=== PATIENT | female | born 1950 | race Asian ===

== ENCOUNTER 2019-02-06 05:40 | Inpatient (IN) | payer MEDICARE, OTHER ==
[~2019-02-06] VITALS: Ht 162.6 cm; Wt 81.6 kg
[2019-02-06] VITALS (9 sets, daily range): BP systolic 87–111; BP diastolic 43–84
--- NOTE | 2019-02-06 05:56 | Emergency Room Report ---
History of Present Illness General Chief Complaint: General Complaint Source: Medical Record, EMS Present Illness HPI She presents with alleged hypoxia at [facility]. She is a history of metastatic colon cancer to her liver. Her oxygen saturations were apparently 88 %. Paramedics found her with saturations of 90 to 92% and started on oxygen. They found that hypotensive. They were unable to start an IV. They transported the patient here. There is no report of fever. The patient is complaining about chest pain. She cannot describe this nor rate it. Apparently she was recently discharged from [facility] for hypotension. She was found to be hyponatremic at that time. She was hospitalized and discharged 3 days ago. During the hospitalization it was documented she was on "supportive care". History of metastatic colon cancer to the liver. Paramedics did not notice that she has evidence of trauma by the right eye. Patient is unable to state how this occurred. Apparently patient is DNR. However, paramedics told me (asked twice) full code. They reported that at the SNF, the patient had a bracelet which denoted "DNR" which the staff insisted was torn off prior to transport. H/O diabetes. Allergies: Coded Allergies: No Known Allergies (Unverified , 02/06/19) Patient History Limited by: medical condition Past Medical History: see triage record Past Surgical History: other - Port-A-Cath Social History Narrative [facility] Now: No Reviewed Nursing Documentation: PMH: Agreed; PSxH: Agreed Nursing Documentation-PMH Hx Cardiac Problems: Yes - DVT, CAD, ANEMIA, Hx Hypertension: Yes - HTN Hx Diabetes: Yes - DM Hx Gastrointestinal Problems: Yes - COLON CA Review of Systems All Other Systems: limited Physical Exam Vital Signs Date Time Temp Pulse Resp B/P (MAP) Pulse Ox O2 Delivery O2 Flow Rate FiO2 02/06/19 05:37 100 16 75/42 (53) 96 Room Air Sp02 EP Interpretation: abnormal - Interpreted as low by me General Appearance: no apparent distress, alert, Chronically Ill Head: normocephalic, atraumatic Eyes: bilateral eye PERRL, bilateral eye scleral icterus ENT: moist mucus membranes Neck: supple Respiratory: lungs clear, no respiratory distress, decreased breath sounds Cardiovascular #1: regular rate, rhythm, edema - Anasarca Cardiovascular #2: 2+ radial (R) Gastrointestinal: non tender, soft - slightly distended, other - Possible fluid wave Genitourinary: no CVA tenderness Musculoskeletal: no calf tenderness Neurologic: responsive, sensory intact, motor weakness - diffuse, oriented - X2 Psychiatric: depressed affect Skin: other - Jaundice, hematoma - Right eye Procedures Critical Care Time Critical Care Time Total Critical Care Time: 30 min bedside evaluation and treatment excludes procedures (EKG). Reason for critical care: Hypotension, sepsis, metastatic colon cancer, determination level of care Possible complications: hypotension, hypertension, AK, shock, arrhythmias, metabolic acidosis, end organ damage, respiratory failure. Interventions: Treatment of sepsis, treatment of hyperkalemia, determination of level of care. Course: Patient presents with hypotension, hypoxia. Evaluation with bilateral pulmonary infiltrates versus congestive failure. Leukocytosis is present. Initial fluid resuscitation stopped when x-ray and BNP is elevated. Due to elevated lactate antibiotics begun. Rigorous determination of CODE STATUS which is DNR/DNI. Hyperkalemia treated. Blood pressure improved. Discussed with admitting physician. Consultations: nursing staff, correction facility, admitting physician Performed by: Dr. Ramirez Tolerated well condition = critical Medical Decision Making Diagnostic Impression: Primary Impression: Transient hypotension Additional Impressions: Sepsis Qualified Codes: A41.9 - Sepsis, unspecified organism Hyperkalemia Hyponatremia Liver metastases Colon cancer Qualified Codes: C18.9 - Malignant neoplasm of colon, unspecified Facial trauma Qualified Codes: S09.93XA - Unspecified injury of face, initial encounter ER Course Patient presents with hypotension and hypoxia with history of metastatic cancer to liver. Differential includes sepsis, GI bleed, hepatic encephalopathy, electrolyte abnormalities amongst others. Patient will be with EKG, chest x- ray abdominal films. Patient will receive IV hydration as her blood pressure is better here. Depending what is uncovered antibiotics may need to be started or started. EKG with sinus rhythm low voltage QRS no injury. Chest x-ray bilateral infiltrates suggesting congestive heart failure. Portacath is present. Leukocytosis. Hyperkalemia without renal failure. Elevated lactate. Mildly elevated BNP. CT of head without cranial pathology. Hyperkalemia treated with calcium, Kayexelate, bicarb. Fluids stopped. Elevated lactate. Antibiotics begun. actuarial director confirms patient DNR with [facility]. Sepsis re-evaluation: 7:40, BP better, antibiotics ordered, improved mentation. Hydrocortisone ordered. Admit telemetry Dr. Sanford. Laboratory Tests Test 02/06/19 05:55 02/06/19 06:30 02/06/19 09:40 White Blood Count 21.5 K/UL (4.8-10.8) H Red Blood Count 3.45 M/UL (4.20-5.40) L Hemoglobin 10.3 G/DL (12.0-16.0) L Hematocrit 31.1 % (37.0-47.0) L Mean Corpuscular Volume 90 FL (80-99) Mean Corpuscular Hemoglobin 29.8 PG (27.0-31.0) Mean Corpuscular Hemoglobin Concent 33.1 G/DL (32.0-36.0) Red Cell Distribution Width 18.4 % (11.6-14.8) H Platelet Count 350 K/UL (150-450) Mean Platelet Volume 5.5 FL (6.5-10.1) L Neutrophils (%) (Auto) % (45.0-75.0) Lymphocytes (%) (Auto) % (20.0-45.0) Monocytes (%) (Auto) % (1.0-10.0) Eosinophils (%) (Auto) % (0.0-3.0) Basophils (%) (Auto) % (0.0-2.0) Differential Total Cells Counted 100 Neutrophils % (Manual) 89 % (45-75) H Lymphocytes % (Manual) 3 % (20-45) L Monocytes % (Manual) 8 % (1-10) Eosinophils % (Manual) 0 % (0-3) Basophils % (Manual) 0 % (0-2) Band Neutrophils 0 % (0-8) Platelet Estimate Adequate Platelet Morphology Normal Anisocytosis 1+ Prothrombin Time 11.0 SEC (9.30-11.50) Prothrombin Time INR 1.0 (0.9-1.1) PTT 29 SEC (23-33) Sodium Level 125 MMOL/L (136-145) L Potassium Level 6.0 MMOL/L (3.5-5.1) *H 6.0 MMOL/L (3.5-5.1) *H Chloride Level 92 MMOL/L (98-107) L Carbon Dioxide Level 20 MMOL/L (21-32) L Anion Gap 13 mmol/L (5-15) Blood Urea Nitrogen 51 mg/dL (7-18) H Creatinine 1.2 MG/DL (0.55-1.30) Estimate Glomerular Filtration Rate 45.0 mL/min (>60) Glucose Level 99 MG/DL (74-106) Lactic Acid Level 2.30 mmol/L (0.4-2.0) H Calcium Level 8.7 MG/DL (8.5-10.1) Magnesium Level 2.8 MG/DL (1.8-2.4) H Total Bilirubin 4.0 MG/DL (0.2-1.0) H Direct Bilirubin 2.9 MG/DL (0.0-0.3) H Aspartate Amino Transferase (AST) 322 U/L (15-37) H Alanine Aminotransferase (ALT) 51 U/L (12-78) Alkaline Phosphatase 684 U/L (46-116) H Ammonia 18 umol/L (11-32) Total Creatine Kinase 289 U/L (26-308) Troponin I 0.000 ng/mL (0.000-0.056) Pro-B-Type Natriuretic Peptide 1402 pg/mL (0-125) H Total Protein 5.9 G/DL (6.4-8.2) L Albumin 1.4 G/DL (3.4-5.0) L Globulin 4.5 g/dL Albumin/Globulin Ratio 0.3 (1.0-2.7) L Lipase 99 U/L (73-393) Urine Color Brown Urine Appearance Clear Urine pH 5 (4.5-8.0) Urine Specific [place] 1.025 (1.005-1.035) Urine Protein 2+ (NEGATIVE) H Urine Glucose (UA) Negative (NEGATIVE) Urine Ketones 1+ (NEGATIVE) H Urine Blood 1+ (NEGATIVE) H Urine Nitrite Positive (NEGATIVE) H Urine Bilirubin 2+ (NEGATIVE) H Urine Ictotest Positive (NEGATIVE) Urine Urobilinogen 1 MG/DL (0.0-1.0) H Urine Leukocyte Esterase 1+ (NEGATIVE) H Urine RBC 0-2 /HPF (0 - 2) Urine WBC 2-4 /HPF (0 - 2) Urine Squamous Epithelial Cells Few /LPF (NONE/OCC) Urine Bacteria Moderate /HPF (NONE) H EKG Diagnostic Results Rate: normal Rhythm: NSR ST Segments: no acute changes - low voltage Rhythm Strip Diag. Results EP Interpretation: yes Rhythm: NSR, no PVC's, no ectopy Chest X-Ray Diagnostic Results Chest X-Ray Diagnostic Results : Chest X-Ray Ordered: Yes # of Views/Limited/Complete: 1 View Indication: Other EP Interpretation: Yes Interpretation: no pneumothorax, other - CHF and inc cor, portacath Impression: Other Electronically Signed by: Electronically signed by Marciano Ramirez MD CT/MRI/US Diagnostic Results CT/MRI/US Diagnostic Results : Imaging Test Ordered: head Impression no bleed Last Vital Signs Date Time Temp Pulse Resp B/P (MAP) Pulse Ox O2 Delivery O2 Flow Rate FiO2 02/06/19 11:04 102 16 90/43 97 Nasal Cannula 2.0 Status: improved Disposition: ADMITTED INPATIENT Condition: Serious Marciano Ramirez MD Feb 06, 2019 05:56
[2019-02-06] MEDS ORDERED: Sodium Chloride 550 ML IV SCH (06:00)
[2019-02-06 06:18] LABS: HEMATOCRIT 31.1 % (37.0-47.0); HEMOGLOBIN 10.3 G/DL (12.0-16.0); MEAN CORPUSCULAR VOLUME 90 FL (80-99); PLATELET COUNT 350 K/UL (150-450); RED BLOOD COUNT 3.45 M/UL (4.20-5.40); RED CELL DISTRIBUTION WIDTH 18.4 % (11.6-14.8); WHITE BLOOD COUNT 21.5 K/UL (4.8-10.8)
[2019-02-06] MEDS ORDERED: LOSARTAN-HCTZ1 EAC2 ORAL (06:23)
[2019-02-06] MEDS ORDERED: LINZESS145 MCG PO (06:23)
[2019-02-06] MEDS ORDERED: RANEXA1000 MG ORAL (06:23)
[2019-02-06] MEDS ORDERED: LIPITOR80 MG ORAL (06:23)
[2019-02-06] MEDS ORDERED: TRADJENTA5 MG PO (06:23)
[2019-02-06] MEDS ORDERED: FERROUS SULFAT325 M2 ORAL (06:23)
[2019-02-06] MEDS ORDERED: VITAMIN D-40400 UNIT ORAL (06:23)
[2019-02-06] MEDS ORDERED: ELIQUIS5 MG PO (06:23)
[2019-02-06] MEDS ORDERED: METFORMIN HCL850 M1 ORAL (06:23)
[2019-02-06 06:38] LABS: AMMONIA 18 umol/L (11-32)
[2019-02-06] MEDS ORDERED: Piperacillin/Tazobactam 3.375 GM in NS 110 ML IVPB ONE (07:00)
[2019-02-06] MEDS ORDERED: Vancomycin 1 GM in NS 275 ML IVPB ONE (07:00)
[2019-02-06 07:02] LABS: APPEARANCE,URINE CLEAR; BILIRUBIN, URINE 2+ (NEGATIVE); COLOR,URINE BROWN; GLUCOSE, URINE (UA) NEGATIVE (NEGATIVE); KETONES,URINE 1+ (NEGATIVE); LEUKOCYTE ESTERASE ,URINE 1+ (NEGATIVE); NITRITE,URINE POSITIVE (NEGATIVE); PH,URINE 5 (4.5-8.0); PROTEIN,URINE 2+ (NEGATIVE); UROBILINOGEN,URINE 1 MG/DL (0.0-1.0)
[2019-02-06 07:33] LABS: ALANINE AMINOTRANSFERASE 51 U/L (12-78); ALBUMIN 1.4 G/DL (3.4-5.0); ALBUMIN/GLOBULIN RATIO 0.3 (1.0-2.7); ALKALINE PHOSPHATASE 684 U/L (46-116); ANION GAP 13 mmol/L (5-15); ASPARTATE AMINO TRANSFERASE 322 U/L (15-37); BLOOD UREA NITROGEN 51 mg/dL (7-18); CALCIUM 8.7 MG/DL (8.5-10.1); CARBON DIOXIDE 20 MMOL/L (21-32); CHLORIDE 92 MMOL/L (98-107); CREATINE KINASE 289 U/L (26-308); CREATININE 1.2 MG/DL (0.55-1.30); SODIUM 125 MMOL/L (136-145)
[2019-02-06 07:35] LABS: BILIRUBIN,DIRECT 2.9 MG/DL (0.0-0.3)
[2019-02-06] MEDS ORDERED: Sodium Polystyrene Sulfonate Enema RECTAL ONE (07:45)
[2019-02-06] MEDS ORDERED: Sodium Bicarbonate 50ml Carp IV ONE (07:45)
[2019-02-06] MEDS ORDERED: Calcium Gluconate 1gm/10ml vial IVP ONE (08:00)
--- NOTE | 2019-02-06 08:26 | Diagnostic Imaging Report ---
Indications: Altered level of consciousness Technique: Spiral acquisitions obtained through the brain. Angled axial and coronal 5 x 5 mm slices were reconstructed. Total dose length product 1376.09 mGycm. CTDI vol(s) 70.38 mGy. Dose reduction achieved using automated exposure control Comparison: None. Findings: No acute intracranial hemorrhage or edema, mass effect, or midline shift. There is minimal age-related prominence of the ventricles and extra-axial CSF spaces and minimal periventricular deep white matter low-attenuation, likely chronic microvascular ischemic change. Visualized orbits and sinuses are unremarkable. The mastoids are clear. Impression: Minimal chronic and age-related changes. Negative for acute intracranial bleed or mass effect This agrees with the preliminary interpretation provided overnight by [facility] teleradiology service. The CT scanner at [facility] is accredited by the [employer] and the scans are performed using protocols designed to limit radiation exposure to as low as reasonably achievable to attain images of sufficient resolution adequate for diagnostic evaluation.
--- NOTE | 2019-02-06 10:51 | Diagnostic Imaging Report ---
Indication: Shortness of breath Technique: One view of the chest Comparison: none Findings: There is a right chest port catheter in place. There is bilateral interstitial and airspace edema, worse on the right than on the left. The right hemidiaphragm is obscured, pleural effusion likely. There is slight blunting of left costophrenic sulcus which could indicate a small left pleural effusion as well. The heart size is borderline enlarged. Impression: Bilateral interstitial and airspace disease, right greater than left, may reflect edema versus infiltrates Suspect bilateral right greater than left pleural effusions Borderline cardiomegaly Right chest port catheter in place
[2019-02-06] MEDS: Piperacillin/Tazobactam 3.375 GM in NS 110 ML IVPB SCH ×2 (15:16→21:58)
[2019-02-06] MEDS: NovoLOG Insulin Flexpen SUBQ SCH ×2 (16:30→21:00)
[2019-02-06] MEDS ORDERED: NovoLOG Insulin Flexpen SUBQ SCH (16:50)
[2019-02-06] MEDS: Eliquis 5mg tablet ORAL SCH (17:29)
[2019-02-06] MEDS: Morphine Sulfate 2mg/ml Inj(IV/IM USE ONLY) IVP PRN ×2 (19:02→23:53)
[2019-02-06] MEDS: Albuterol/Ipratropium 3ml neb HHN SCH (20:08)
[2019-02-06] MEDS: Vancomycin 500mg/D5W 110ml IVPB SCH ×2 (20:26)
--- NOTE | 2019-02-06 21:30 | Consultation ---
DATE OF CONSULTATION: 02/06/2019 CARDIOLOGY CONSULTATION CONSULTING PHYSICIAN: Marciano Sanford M.D. REQUESTING PHYSICIAN: Sylvain Bermudez M.D. REASON FOR CONSULTATION: Shock. HISTORY OF PRESENT ILLNESS: This is a 68-year-old Pashto female with a history of metastatic colon cancer, who was notably hypoxic and transferred to the emergency room by paramedics. She was hypotensive when paramedics arrived and an IV access could not be obtained. The patient does have a Port-A-Cath in her right chest. The patient apparently also had some chest pain, palpitations, but no shortness of breath, fevers, or chills. The patient was recently hospitalized at [facility] for hypotension and hyponatremia. She apparently is not on any active treatment of her cancer at this time. PAST MEDICAL HISTORY: 1. Colon cancer. 2. History of DVT. 3. Anemia. 4. Hypertension. 5. Type 2 diabetes mellitus. 6. Coronary artery disease. 7. Osteoarthritis. 8. Degenerative disk disease. 9. Osteoporosis. MEDICATIONS: Reviewed and reconciled. ALLERGIES: None known. FAMILY HISTORY: Noncontributory. SOCIAL HISTORY: Negative for smoking, alcohol, or substance abuse. REVIEW OF SYSTEMS: A 10-point review of systems performed from review of correction chart. All systems negative other than noted above. The patient is unable to give any additional data due to language barrier and severity of condition. PHYSICAL EXAMINATION: VITAL SIGNS: Blood pressure 75/42, heart rate 100, and respiratory rate 16 on arrival to the emergency room. Now, blood pressure is 90/43, heart rate is 102, and respiratory rate is 16. Oxygen saturation 97% on 2 liters. Temperature 98.2. HEENT: Temporal wasting. Pale conjunctivae. Withdrawn. Lethargic. Dry mucous membranes. There is scleral icterus. There is a hematoma over the right eye. LUNGS: Diminished breath sounds. Chest wall with right Port-A-Cath. No breast masses. CARDIAC: Regular rhythm. Rapid rate. Normal S1, S2 with a fourth heart sound. No murmur. ABDOMEN: Soft. No focal tenderness, guarding, or rebound. EXTREMITIES: Reveal no clubbing, cyanosis, or edema. LABORATORY DATA: White count 21.5 and hemoglobin 10. INR 1. Lactic acid 2.3. Potassium 6, sodium 125, chloride 92, bicarb 20, BUN 51, and creatinine 1.2. Troponin negative. Ammonia 18. Albumin is 1.4. Pro-natriuretic peptide is 1402. IMPRESSION: 1. Shock. 2. Sepsis. 3. Hypovolemia. 4. Hyperkalemia. 5. Severe protein-calorie malnutrition. 6. Lactic acidosis. 7. Metastatic colon cancer with liver mets and clinical signs of jaundice suggesting an obstructive component in the hepatobiliary tree. 8. Type 2 diabetes mellitus. 9. Prerenal azotemia. 10. Acute renal failure. 11. Bilateral pneumonia with pleural effusions. 12. Hyponatremia. 13. History of DVT. On anticoagulation. PLAN: 1. Based on advanced directives, DNR. 2. Saline hydration. 3. Kayexalate given. 4. Phillips culture. 5. Broad-spectrum antibiotics. 6. Respiratory hygiene. 7. Consideration for thoracentesis. 8. Continue apixaban for management of DVT. 9. Follow up chemistry panel. 10. Review prior workup prior to considering further diagnostic imaging of the abdomen. 11. Serial lactic acid levels with continued intravenous fluid hydration. Marciano Sanford M.D. DR: NICHOLAS JOB#: [id number] CC:
[2019-02-07] VITALS: BP_SYST 191; BP_SYST 91; BP_DIAS 61
[2019-02-07] MEDS: Albuterol/Ipratropium 3ml neb HHN SCH ×4 (02:05→20:56)
[2019-02-07 04:00] VITALS: BP 86/57
[2019-02-07] MEDS: Morphine Sulfate 2mg/ml Inj(IV/IM USE ONLY) IVP PRN ×3 (04:35→16:19)
[2019-02-07] MEDS: Piperacillin/Tazobactam 3.375 GM in NS 110 ML IVPB SCH ×3 (06:03→22:00)
[2019-02-07] MEDS: NovoLOG Insulin Flexpen SUBQ SCH ×2 (06:06→11:30)
[2019-02-07 08:00] VITALS: BP_SYST 91; BP_SYST 92; BP_DIAS 58; BP_DIAS 68
[2019-02-07] MEDS: Eliquis 5mg tablet ORAL SCH ×2 (09:00→17:30)
[2019-02-07] MEDS ORDERED: Heparin 5000 units/ml inj SUBQ SCH (09:00)
[2019-02-07] MEDS: Vancomycin 500mg/D5W 110ml IVPB SCH ×2 (09:06)
[2019-02-07 11:38] LABS: HEMATOCRIT 31.2 % (37.0-47.0); HEMOGLOBIN 10.1 G/DL (12.0-16.0); MEAN CORPUSCULAR VOLUME 90 FL (80-99); PLATELET COUNT 329 K/UL (150-450); RED BLOOD COUNT 3.47 M/UL (4.20-5.40); RED CELL DISTRIBUTION WIDTH 17.5 % (11.6-14.8); WHITE BLOOD COUNT 19.8 K/UL (4.8-10.8)
[2019-02-07 12:00] VITALS: BP 92/68
[2019-02-07 12:20] LABS: ALANINE AMINOTRANSFERASE 44 U/L (12-78); ALBUMIN 1.2 G/DL (3.4-5.0); ALBUMIN/GLOBULIN RATIO 0.3 (1.0-2.7); ALKALINE PHOSPHATASE 623 U/L (46-116); ANION GAP 14 mmol/L (5-15); ASPARTATE AMINO TRANSFERASE 290 U/L (15-37); BILIRUBIN,TOTAL 3.4 MG/DL (0.2-1.0); BLOOD UREA NITROGEN 59 mg/dL (7-18); CALCIUM 8.3 MG/DL (8.5-10.1); CARBON DIOXIDE 20 MMOL/L (21-32); CHLORIDE 97 MMOL/L (98-107); CREATININE 1.3 MG/DL (0.55-1.30); POTASSIUM 5.4 MMOL/L (3.5-5.1); SODIUM 131 MMOL/L (136-145)
[2019-02-07] MEDS ORDERED: Solu-MEDROL 40mg Inj IVP SCH (13:00)
[2019-02-07 16:00] VITALS: BP 100/63
[2019-02-07] MEDS ORDERED: LORazepam Inj 2mg/ml 1ml IV PRN (17:15)
--- NOTE | 2019-02-07 17:15 | History and Physical Report ---
DATE OF ADMISSION: 02/06/2019 CHIEF COMPLAINT: Shock. HISTORY OF PRESENT ILLNESS: This is an unfortunate 68-year-old Lao female. She has a history of metastatic colon cancer with mets to the liver, history of DVT, anemia, hypertension, diabetes, and ischemic cardiomyopathy. She [facility] after she was noted to be short of breath and hypoxic. On evaluation in the emergency room, the patient was noted to be hypotensive. Her laboratory tests were significant for a sodium of 125 and a potassium was 6. Her bilirubin was 4. She had an albumin of only 1.4. Her urinalysis was clear. Chest x-ray showed bilateral infiltrates and pleural effusions. CT scan of the head was negative. The patient was cultured and has been started on broad-spectrum IV antibiotics and is now admitted for further evaluation and care. PAST MEDICAL HISTORY: As above. PAST SURGICAL HISTORY: None known. CURRENT MEDICATIONS: Reconciled and reviewed. ALLERGIES: None. FAMILY HISTORY: Unknown. SOCIAL HISTORY: There is no known history of tobacco, ethanol, or drugs. REVIEW OF SYSTEMS: From the patient is unobtainable as she is confused. PHYSICAL EXAMINATION: VITAL SIGNS: Temperature 97.6, pulse 98, respirations 20, and blood pressure 91/67. GENERAL: The patient is an elderly female, in no apparent distress. She is lethargic, but does open her eyes. NECK: Supple. HEART: Regular rate and rhythm. LUNGS: Clear anteriorly. ABDOMEN: Soft, nontender, and nondistended. EXTREMITIES: Without clubbing, cyanosis, or edema. LABORATORY DATA: UA was clear. White count 21,000, hemoglobin is 10, and platelets are 350,000. Sodium 125, potassium is 6, and BUN of 51 with creatinine of 1.2. Bilirubin of 4.0. ASSESSMENT: This is an unfortunate elderly female with history of metastatic colon cancer, diabetes, history of DVT, and hypertension admitted with sepsis secondary to pneumonia. 1. Sepsis. 2. Shock. 3. Pneumonia. 4. Metastatic colon cancer. 5. Diabetes. 6. History of ischemic cardiomyopathy. PLAN: 1. IV fluids. 2. Broad-spectrum IV antibiotics. 3. Monitor chest x-ray. 4. Follow up cultures. 5. Continue stress ulcer prophylaxis. Apixaban with caution. 6. The patient's prognosis is poor. Sylvain Bermudez M.D. DR: ESTEPHANIA JOB#: [id number] CC:
--- NOTE | 2019-02-07 17:53 | Pulmonology Progress Note ---
Subjective Allergies: Coded Allergies: No Known Allergies (Unverified , 02/06/19) Objective Last 24 Hour Vital Signs Date Time Temp Pulse Resp B/P (MAP) Pulse Ox O2 Delivery O2 Flow Rate FiO2 02/07/19 16:00 97.9 99 15 100/63 (75) 95 02/07/19 16:00 98 02/07/19 13:30 Nasal Cannula 02/07/19 13:30 Nasal Cannula 02/07/19 12:00 97.6 98 15 92/68 (76) 95 02/07/19 12:00 99 02/07/19 09:00 Nasal Cannula 3.0 02/07/19 08:00 98 02/07/19 08:00 98.0 98 18 91/58 (69) 95 02/07/19 07:30 89 18 97 Nasal Cannula 2.0 28 02/07/19 07:30 Nasal Cannula 02/07/19 04:00 101 02/07/19 04:00 97.7 101 18 86/57 (67) 94 02/07/19 02:16 87 16 96 Nasal Cannula 2.0 28 02/07/19 02:16 28 02/07/19 02:06 98 18 96 Nasal Cannula 2.0 28 02/07/19 00:00 98 02/07/19 00:00 97.6 101 20 91/61 (71) 94 02/06/19 21:00 Nasal Cannula 3.0 02/06/19 20:33 93 18 91 Nasal Cannula 3.0 32 02/06/19 20:20 89 16 93 Nasal Cannula 2.0 28 02/06/19 20:16 28 02/06/19 20:08 102 18 94 Nasal Cannula 2.0 28 02/06/19 20:00 97.5 99 18 91/55 (67) 94 02/06/19 20:00 98 Intake and Output 02/06/19 02/07/19 19:00 07:00 Intake Total 817.5 ml 1327.5 ml Output Total 440 ml 100 ml Balance 377.5 ml 1227.5 ml Intake Oral 0 ml IV Total 817.5 ml 1327.5 ml Output Urine Total 440 ml 100 ml # Bowel Movements 1 Microbiology Date/Time Source Procedure Growth Status 02/06/19 06:30 Urine,Clean Catch Urine Culture - Preliminary NO GROWTH AFTER 24 HOURS Resulted Laboratory Tests 02/07/19 11:05: White Blood Count 19.8H, Red Blood Count 3.47L, Hemoglobin 10.1L, Hematocrit 31.2L, Mean Corpuscular Volume 90, Mean Corpuscular Hemoglobin 29.1, Mean Corpuscular Hemoglobin Concent 32.4, Red Cell Distribution Width 17.5H, Platelet Count 329, Mean Platelet Volume 5.4L, Neutrophils (%) (Auto) , Lymphocytes (%) (Auto) , Monocytes (%) (Auto) , Eosinophils (%) (Auto) , Basophils (%) (Auto) , Differential Total Cells Counted 100, Neutrophils % ( Manual) 84H, Lymphocytes % (Manual) 6L, Monocytes % (Manual) 10, Eosinophils % ( Manual) 0, Basophils % (Manual) 0, Band Neutrophils 0, Platelet Estimate Adequate, Platelet Morphology Normal, Anisocytosis 1+, Sodium Level 131L, Potassium Level 5.4H, Chloride Level 97L, Carbon Dioxide Level 20L, Anion Gap 14 , Blood Urea Nitrogen 59H, Creatinine 1.3, Estimat Glomerular Filtration Rate 41.0, Glucose Level 94, Calcium Level 8.3L, Total Bilirubin 3.4H, Direct Bilirubin 3.0H, Aspartate Amino Transf (AST/SGOT) 290H, Alanine Aminotransferase (ALT/SGPT) 44, Alkaline Phosphatase 623H, Total Protein 5.2L, Albumin 1.2L, Globulin 4.0, Albumin/Globulin Ratio 0.3L Current Medications Medications (Trade) Dose Ordered Sig/Dao Route PRN Reason Start Time Stop Time Status Last Admin Dose Admin Albuterol/ Ipratropium (Albuterol/ Ipratropium) 3 ml Q6HRT HHN 02/06/19 19:00 02/11/19 18:59 02/07/19 02:05 Apixaban (Eliquis) 5 mg BID ORAL 02/06/19 18:00 03/08/19 17:59 Dextrose (Dextrose 50%) 25 ml Q30M PRN IV Hypoglycemia 02/06/19 14:00 03/08/19 13:59 Dextrose (Dextrose 50%) 50 ml Q30M PRN IV Hypoglycemia 02/06/19 14:00 03/08/19 13:59 Insulin Aspart (NovoLOG) Q6HR SUBQ 02/07/19 18:00 03/08/19 16:29 Lorazepam (Ativan 2mg/ml 1ml) 1 mg Q6H PRN IV For Anxiety 02/07/19 17:15 02/14/19 17:14 Methylprednisolone Sodium Succinate (Solu-MEDROL) 40 mg Q12H IVP 02/07/19 13:00 03/09/19 12:59 02/07/19 13:09 Morphine Sulfate (Morphine Sulfate) 4 mg Q3H PRN IVP For Pain 02/07/19 19:00 02/14/19 18:59 Piperacillin Sod/ Tazobactam Sod 3.375 gm/Sodium Chloride 110 ml @ 27.5 mls/hr EVERY 8 HOURS IVPB 02/06/19 15:00 02/11/19 14:59 02/07/19 13:09 Sodium Chloride 1,000 ml @ 100 mls/hr Q10H IV 02/06/19 13:45 03/08/19 13:44 02/07/19 09:45 Vancomycin HCl (Vanco rx to dose) 1 ea DAILY PRN MISC Per rx protocol 02/06/19 13:45 03/08/19 13:44 Vancomycin HCl 500 mg/Dextrose 110 ml @ 110 mls/hr Q12HR@0800,2000 IVPB 02/06/19 20:00 02/11/19 19:59 02/07/19 09:06 Bertin Franklin MD Feb 07, 2019 17:53
--- NOTE | 2019-02-07 17:53 | Consultation ---
Consult Note Consult Note 68-year-old Maltese female. She has a history of metastatic colon cancer with mets to the liver and was transferred from a halfway facility after she was noted to be short of breath and hypoxic. On evaluation in the emergency room, the patient was noted to be hypotensive and hypoxic. Patient with abnormal electrolytes, elevated liver enzymes, and severe protein calorie malnutrition. Chest x-ray showed bilateral infiltrates and pleural effusions. The patient was started on broad-spectrum IV antibiotics and is now admitted for further evaluation and care. PAST MEDICAL HISTORY: history of DVT, anemia, hypertension, diabetes, and ischemic cardiomyopathy PAST SURGICAL HISTORY: None known. CURRENT MEDICATIONS: Reconciled and reviewed. ALLERGIES: None. FAMILY HISTORY: Unknown. SOCIAL HISTORY: There is no known history of tobacco, ethanol, or drugs. recent SNF patient REVIEW OF SYSTEMS: From the patient is unobtainable as she is confused. PHYSICAL EXAMINATION: GENERAL: The patient is an elderly female, in no apparent distress. altered NECK: Supple. HEART: Regular rate and rhythm. LUNGS: Clear anteriorly. noted wheezes ABDOMEN: Soft, nontender, and nondistended. EXTREMITIES: Without clubbing, cyanosis, or edema weak diffusely . Labs Test 02/06/19 05:55 02/06/19 06:30 02/06/19 09:40 02/06/19 10:40 White Blood Count 21.5 K/UL (4.8-10.8) Red Blood Count 3.45 M/UL (4.20-5.40) Hemoglobin 10.3 G/DL (12.0-16.0) Hematocrit 31.1 % (37.0-47.0) Mean Corpuscular Volume 90 FL (80-99) Mean Corpuscular Hemoglobin 29.8 PG (27.0-31.0) Mean Corpuscular Hemoglobin Concent 33.1 G/DL (32.0-36.0) Red Cell Distribution Width 18.4 % (11.6-14.8) Platelet Count 350 K/UL (150-450) Mean Platelet Volume 5.5 FL (6.5-10.1) Neutrophils (%) (Auto) % (45.0-75.0) Lymphocytes (%) (Auto) % (20.0-45.0) Monocytes (%) (Auto) % (1.0-10.0) Eosinophils (%) (Auto) % (0.0-3.0) Basophils (%) (Auto) % (0.0-2.0) Differential Total Cells Counted 100 Neutrophils % (Manual) 89 % (45-75) Lymphocytes % (Manual) 3 % (20-45) Monocytes % (Manual) 8 % (1-10) Eosinophils % (Manual) 0 % (0-3) Basophils % (Manual) 0 % (0-2) Band Neutrophils 0 % (0-8) Platelet Estimate Adequate Platelet Morphology Normal Anisocytosis 1+ Prothrombin Time 11.0 SEC (9.30-11.50) Prothromb Time International Ratio 1.0 (0.9-1.1) Activated Partial Thromboplast Time 29 SEC (23-33) Sodium Level 125 MMOL/L (136-145) Potassium Level 6.0 MMOL/L (3.5-5.1) 6.0 MMOL/L (3.5-5.1) Chloride Level 92 MMOL/L (98-107) Carbon Dioxide Level 20 MMOL/L (21-32) Anion Gap 13 mmol/L (5-15) Blood Urea Nitrogen 51 mg/dL (7-18) Creatinine 1.2 MG/DL (0.55-1.30) Estimat Glomerular Filtration Rate 45.0 mL/min (>60) Glucose Level 99 MG/DL (74-106) Lactic Acid Level 2.30 mmol/L (0.4-2.0) 1.70 mmol/L (0.66-2.22) Calcium Level 8.7 MG/DL (8.5-10.1) Magnesium Level 2.8 MG/DL (1.8-2.4) Total Bilirubin 4.0 MG/DL (0.2-1.0) Direct Bilirubin 2.9 MG/DL (0.0-0.3) Aspartate Amino Transf (AST/SGOT) 322 U/L (15-37) Alanine Aminotransferase (ALT/SGPT) 51 U/L (12-78) Alkaline Phosphatase 684 U/L (46-116) Ammonia 18 umol/L (11-32) Total Creatine Kinase 289 U/L (26-308) Troponin I 0.000 ng/mL (0.000-0.056) Pro-B-Type Natriuretic Peptide 1402 pg/mL (0-125) Total Protein 5.9 G/DL (6.4-8.2) Albumin 1.4 G/DL (3.4-5.0) Globulin 4.5 g/dL Albumin/Globulin Ratio 0.3 (1.0-2.7) Lipase 99 U/L (73-393) Urine Color Brown Urine Appearance Clear Urine pH 5 (4.5-8.0) Urine Specific [place] 1.025 (1.005-1.035) Urine Protein 2+ (NEGATIVE) Urine Glucose (UA) Negative (NEGATIVE) Urine Ketones 1+ (NEGATIVE) Urine Blood 1+ (NEGATIVE) Urine Nitrite Positive (NEGATIVE) Urine Bilirubin 2+ (NEGATIVE) Urine Ictotest Positive (NEGATIVE) Urine Urobilinogen 1 MG/DL (0.0-1.0) Urine Leukocyte Esterase 1+ (NEGATIVE) Urine RBC 0-2 /HPF (0 - 2) Urine WBC 2-4 /HPF (0 - 2) Urine Squamous Epithelial Cells Few /LPF (NONE/OCC) Urine Bacteria Moderate /HPF (NONE) Test 02/07/19 11:05 White Blood Count 19.8 K/UL (4.8-10.8) Red Blood Count 3.47 M/UL (4.20-5.40) Hemoglobin 10.1 G/DL (12.0-16.0) Hematocrit 31.2 % (37.0-47.0) Mean Corpuscular Volume 90 FL (80-99) Mean Corpuscular Hemoglobin 29.1 PG (27.0-31.0) Mean Corpuscular Hemoglobin Concent 32.4 G/DL (32.0-36.0) Red Cell Distribution Width 17.5 % (11.6-14.8) Platelet Count 329 K/UL (150-450) Mean Platelet Volume 5.4 FL (6.5-10.1) Neutrophils (%) (Auto) % (45.0-75.0) Lymphocytes (%) (Auto) % (20.0-45.0) Monocytes (%) (Auto) % (1.0-10.0) Eosinophils (%) (Auto) % (0.0-3.0) Basophils (%) (Auto) % (0.0-2.0) Differential Total Cells Counted 100 Neutrophils % (Manual) 84 % (45-75) Lymphocytes % (Manual) 6 % (20-45) Monocytes % (Manual) 10 % (1-10) Eosinophils % (Manual) 0 % (0-3) Basophils % (Manual) 0 % (0-2) Band Neutrophils 0 % (0-8) Platelet Estimate Adequate Platelet Morphology Normal Anisocytosis 1+ Sodium Level 131 MMOL/L (136-145) Potassium Level 5.4 MMOL/L (3.5-5.1) Chloride Level 97 MMOL/L (98-107) Carbon Dioxide Level 20 MMOL/L (21-32) Anion Gap 14 mmol/L (5-15) Blood Urea Nitrogen 59 mg/dL (7-18) Creatinine 1.3 MG/DL (0.55-1.30) Estimat Glomerular Filtration Rate 41.0 mL/min (>60) Glucose Level 94 MG/DL (74-106) Calcium Level 8.3 MG/DL (8.5-10.1) Total Bilirubin 3.4 MG/DL (0.2-1.0) Direct Bilirubin 3.0 MG/DL (0.0-0.3) Aspartate Amino Transf (AST/SGOT) 290 U/L (15-37) Alanine Aminotransferase (ALT/SGPT) 44 U/L (12-78) Alkaline Phosphatase 623 U/L (46-116) Total Protein 5.2 G/DL (6.4-8.2) Albumin 1.2 G/DL (3.4-5.0) Globulin 4.0 g/dL Albumin/Globulin Ratio 0.3 (1.0-2.7) IMPRESSION bilateral infiltrates bilateral effusions bronchospasm respiratory insufficiency elevated liver enzymes metastatic colon cancer hypoxemia PLAN IV steroids IV antibiotics respiratory care neb therapy monitor for aspiration follow up cxr and abg impression, plan, and exam edited and reviewed in detail care discussed with Bertin Mendez MD Feb 07, 2019 17:53
[2019-02-07] MEDS ORDERED: NovoLOG Insulin Flexpen SUBQ SCH (18:00)
[2019-02-07] MEDS ORDERED: Morphine Sulfate 4mg/ml Inj (IV USE ONLY) IVP PRN (19:00)
[2019-02-07 20:00] VITALS: BP 107/63
[2019-02-07] MEDS: Vancomycin 500 MG in D5W 110 ML IVPB SCH (20:00)
[2019-02-07] MEDS: Morphine Sulfate 4mg/ml Inj (IV USE ONLY) IVP PRN (20:50)
[2019-02-08] VITALS: BP 97/66
[2019-02-08] MEDS: Morphine Sulfate 4mg/ml Inj (IV USE ONLY) IVP PRN ×6 (00:10→20:52)
[2019-02-08] MEDS: Solu-MEDROL 40mg Inj IVP SCH ×2 (01:00→12:49)
[2019-02-08] MEDS: Albuterol/Ipratropium 3ml neb HHN SCH ×4 (01:00→19:56)
--- NOTE | 2019-02-08 02:45 | Progress Note ---
DATE: 02/07/2019 CARDIOLOGY PROGRESS NOTE SUBJECTIVE: Family members at bedside. Case discussed in detail. The patient has pain requiring morphine. Family members are aware of terminal prognosis and considering transition to comfort care. At this time, the patient is DNR. OBJECTIVE: VITAL SIGNS: Blood pressure 92/68, pulse 98, respirations 15, and afebrile. HEENT: Mild icterus. LUNGS: Diminished breath sounds. HEART: Regular rhythm and rate. Normal S1, S2. ABDOMEN: Distended and diffusely tender. EXTREMITIES: With 1+ edema. IMPRESSION: 1. Metastatic colon cancer. 2. cancer related pain. 3. Sepsis. 4. Healthcare-acquired pneumonia. 5. Pleural effusion. 6. History of DVT. PLAN: 1. Antimicrobials. 2. Respiratory hygiene. 3. Maintenance hydration. 4. Morphine for pain. 5. Apixaban for anticoagulation. 6. Await family decision regarding comfort care plan. Otherwise, continue current level of support. Marciano Sanford M.D. DR: NICHOLAS JOB#: [id number] CC:
[2019-02-08 04:00] VITALS: BP 102/59
[2019-02-08] MEDS: Piperacillin/Tazobactam 3.375 GM in NS 110 ML IVPB SCH ×3 (05:54→21:22)
[2019-02-08] MEDS: NovoLOG Insulin Flexpen SUBQ SCH ×4 (05:54→17:32)
[2019-02-08 07:33] LABS: HEMATOCRIT 31.6 % (37.0-47.0); HEMOGLOBIN 10.3 G/DL (12.0-16.0); MEAN CORPUSCULAR VOLUME 91 FL (80-99); PLATELET COUNT 382 K/UL (150-450); RED BLOOD COUNT 3.47 M/UL (4.20-5.40); RED CELL DISTRIBUTION WIDTH 17.7 % (11.6-14.8); WHITE BLOOD COUNT 21.9 K/UL (4.8-10.8)
[2019-02-08 08:00] VITALS: BP 89/68
[2019-02-08 08:00] LABS: ALANINE AMINOTRANSFERASE 43 U/L (12-78); ALBUMIN 1.3 G/DL (3.4-5.0); ALBUMIN/GLOBULIN RATIO 0.3 (1.0-2.7); ALKALINE PHOSPHATASE 740 U/L (46-116); ANION GAP 17 mmol/L (5-15); ASPARTATE AMINO TRANSFERASE 276 U/L (15-37); BILIRUBIN,TOTAL 3.7 MG/DL (0.2-1.0); BLOOD UREA NITROGEN 63 mg/dL (7-18); CALCIUM 8.7 MG/DL (8.5-10.1); CARBON DIOXIDE 16 MMOL/L (21-32); CHLORIDE 95 MMOL/L (98-107); CREATININE 1.1 MG/DL (0.55-1.30); POTASSIUM 5.5 MMOL/L (3.5-5.1); SODIUM 128 MMOL/L (136-145)
[2019-02-08] MEDS: Vancomycin 500 MG in D5W 110 ML IVPB SCH (08:46)
[2019-02-08] MEDS: Eliquis 5mg tablet ORAL SCH ×2 (08:54→17:32)
--- NOTE | 2019-02-08 09:18 | Diagnostic Imaging Report ---
EXAM: XR Chest, 1 View. CLINICAL HISTORY: ABN CHST TECHNIQUE: Frontal view of the chest. COMPARISON: 02/06/19. FINDINGS: Lungs: Again seen is diffuse pulmonary edema throughout both lungs, partially accentuated by lung hypoinflation. No definite airspace consolidation. Bibasilar atelectasis. Pleural spaces: Probable bilateral pleural effusions, right greater than left. No pneumothorax. Heart: Cardiac silhouette appears grossly unchanged. Mediastinum: No mediastinal widening or shift. Again seen is a right anterior chest wall Port-A-Cath, with the tip at the distal SVC. Bones: No acute osseous abnormality. IMPRESSION: Low lung volumes, with diffuse pulmonary edema and small pleural effusions. Findings may be associated with heart failure or volume overload. No definite airspace consolidation.
--- NOTE | 2019-02-08 09:58 | General Progress Note ---
Assessment/Plan Problem List: (1) UTI (urinary tract infection) ICD Codes: N39.0 - Urinary tract infection, site not specified SNOMED: 43726707 (2) Hyponatremia ICD Codes: E87.1 - Hypo-osmolality and hyponatremia SNOMED: 07260567 (3) Sepsis ICD Codes: A41.9 - Sepsis, unspecified organism SNOMED: 24750293 Qualifiers: Qualified Codes: A41.9 - Sepsis, unspecified organism (4) Transient hypotension ICD Codes: I95.9 - Hypotension, unspecified SNOMED: 38665404824271 (5) Colon cancer ICD Codes: C18.9 - Malignant neoplasm of colon, unspecified SNOMED: 416201052 Qualifiers: Qualified Codes: C18.9 - Malignant neoplasm of colon, unspecified (6) Hypotension ICD Codes: I95.9 - Hypotension, unspecified SNOMED: 01450296 (7) Liver metastases ICD Codes: C78.7 - Secondary malignant neoplasm of liver and intrahepatic bile duct SNOMED: 29188952 Status: deteriorating Assessment/Plan: resp care o2 abx family wants to arrange for hospice at home. Subjective ROS Limited/Unobtainable: No Constitutional: Reports: malaise, weakness HEENT: Reports: no symptoms Cardiovascular: Reports: edema Respiratory: Reports: cough, shortness of breath Gastrointestinal/Abdominal: Reports: no symptoms Genitourinary: Reports: no symptoms Neurologic/Psychiatric: Reports: no symptoms Endocrine: Reports: no symptoms Hematologic/Lymphatic: Reports: anemia Allergies: Coded Allergies: No Known Allergies (Unverified , 02/06/19) All Systems: reviewed and negative except above Subjective no events. family a the bedside. pt is confused. still sob. Objective Last 24 Hour Vital Signs Date Time Temp Pulse Resp B/P (MAP) Pulse Ox O2 Delivery O2 Flow Rate FiO2 02/08/19 07:43 109 20 97 Nasal Cannula 2.0 28 02/08/19 07:33 106 20 97 Nasal Cannula 2.0 28 02/08/19 04:00 98.2 90 16 102/59 (73) 93 02/08/19 01:19 Nasal Cannula 2.0 28 02/08/19 01:19 Nasal Cannula 2.0 28 02/08/19 00:00 97.6 82 18 97/66 (76) 94 02/07/19 21:02 28 02/07/19 21:00 Nasal Cannula 3.0 02/07/19 20:59 81 18 96 Nasal Cannula 2.0 28 02/07/19 20:00 98.1 93 18 107/63 (78) 97 02/07/19 16:00 97.9 99 15 100/63 (75) 95 02/07/19 16:00 98 02/07/19 13:30 Nasal Cannula 02/07/19 13:30 Nasal Cannula 02/07/19 12:00 97.6 98 15 92/68 (76) 95 02/07/19 12:00 99 Intake and Output 02/07/19 02/08/19 19:00 07:00 Intake Total 1127.5 ml 1100 ml Output Total 550 ml 350 ml Balance 577.5 ml 750 ml IV Total 1127.5 ml 1100 ml Output Urine Total 550 ml 350 ml Laboratory Tests 02/07/19 11:05: White Blood Count 19.8H, Red Blood Count 3.47L, Hemoglobin 10.1L, Hematocrit 31.2L, Mean Corpuscular Volume 90, Mean Corpuscular Hemoglobin 29.1, Mean Corpuscular Hemoglobin Concent 32.4, Red Cell Distribution Width 17.5H, Platelet Count 329, Mean Platelet Volume 5.4L, Neutrophils (%) (Auto) , Lymphocytes (%) (Auto) , Monocytes (%) (Auto) , Eosinophils (%) (Auto) , Basophils (%) (Auto) , Differential Total Cells Counted 100, Neutrophils % ( Manual) 84H, Lymphocytes % (Manual) 6L, Monocytes % (Manual) 10, Eosinophils % ( Manual) 0, Basophils % (Manual) 0, Band Neutrophils 0, Platelet Estimate Adequate, Platelet Morphology Normal, Anisocytosis 1+, Sodium Level 131L, Potassium Level 5.4H, Chloride Level 97L, Carbon Dioxide Level 20L, Anion Gap 14 , Blood Urea Nitrogen 59H, Creatinine 1.3, Estimat Glomerular Filtration Rate 41.0, Glucose Level 94, Calcium Level 8.3L, Total Bilirubin 3.4H, Direct Bilirubin 3.0H, Aspartate Amino Transf (AST/SGOT) 290H, Alanine Aminotransferase (ALT/SGPT) 44, Alkaline Phosphatase 623H, Total Protein 5.2L, Albumin 1.2L, Globulin 4.0, Albumin/Globulin Ratio 0.3L 02/08/19 04:00: Arterial Blood pH 7.314L, Arterial Blood Partial Pressure CO2 27.0L, Arterial Blood Partial Pressure O2 92.4, Arterial Blood HCO3 13.4*L, Arterial Blood Oxygen Saturation 95.7, Arterial Blood Base Excess -11.3*L, John Test [Pending] 02/08/19 06:55: White Blood Count 21.9H, Red Blood Count 3.47L, Hemoglobin 10.3L, Hematocrit 31.6L, Mean Corpuscular Volume 91, Mean Corpuscular Hemoglobin 29.6, Mean Corpuscular Hemoglobin Concent 32.4, Red Cell Distribution Width 17.7H, Platelet Count 382, Mean Platelet Volume 5.5L, Neutrophils (%) (Auto) , Lymphocytes (%) (Auto) , Monocytes (%) (Auto) , Eosinophils (%) (Auto) , Basophils (%) (Auto) , Neutrophils % (Manual) [Pending], Lymphocytes % (Manual) [Pending], Platelet Estimate [Pending], Platelet Morphology [Pending], Sodium Level 128L, Potassium Level 5.5H, Chloride Level 95L, Carbon Dioxide Level 16L, Anion Gap 17H, Blood Urea Nitrogen 63H, Creatinine 1.1, Estimat Glomerular Filtration Rate 49.7, Glucose Level 124H, Calcium Level 8.7, Total Bilirubin 3.7H, Direct Bilirubin 3.0H, Aspartate Amino Transf (AST/SGOT) 276H, Alanine Aminotransferase (ALT/SGPT) 43, Alkaline Phosphatase 740H, Total Protein 5.6L, Albumin 1.3L, Globulin 4.3, Albumin/Globulin Ratio 0.3L, Magnesium Level 2.5H, Vancomycin Level Trough 18.1H Height (Feet): 5 Height (Inches): 4.00 Weight (Pounds): 180 General Appearance: WD/WN, alert, lethargic, confused Neck: supple Cardiovascular: normal rate Respiratory/Chest: rhonchi - bilaterally Abdomen: normal bowel sounds, non tender, soft, no organomegaly Edema: moderate edema Neurologic: alert, disoriented Sylvain Bermudez MD Feb 08, 2019 09:58
--- NOTE | 2019-02-08 10:58 | Pulmonology Progress Note ---
Assessment/Plan Assessment/Plan IMPRESSION bilateral infiltrates bilateral effusions bronchospasm respiratory insufficiency elevated liver enzymes metastatic colon cancer hypoxemia PLAN IV steroids ? dc in am IV antibiotics respiratory care neb therapy monitor for aspiration follow up cxr and abg hospice care being planned impression, plan, and exam edited and reviewed in detail care discussed with RN Subjective Allergies: Coded Allergies: No Known Allergies (Unverified , 02/06/19) Subjective care noted family would like hospice Objective Last 24 Hour Vital Signs Date Time Temp Pulse Resp B/P (MAP) Pulse Ox O2 Delivery O2 Flow Rate FiO2 02/08/19 09:00 Nasal Cannula 3.0 02/08/19 08:00 98.3 110 20 89/68 (75) 95 02/08/19 07:43 109 20 97 Nasal Cannula 2.0 28 02/08/19 07:33 106 20 97 Nasal Cannula 2.0 28 02/08/19 04:00 98.2 90 16 102/59 (73) 93 02/08/19 01:19 Nasal Cannula 2.0 28 02/08/19 01:19 Nasal Cannula 2.0 28 02/08/19 00:00 97.6 82 18 97/66 (76) 94 02/07/19 21:02 28 02/07/19 21:00 Nasal Cannula 3.0 02/07/19 20:59 81 18 96 Nasal Cannula 2.0 28 02/07/19 20:00 98.1 93 18 107/63 (78) 97 02/07/19 16:00 97.9 99 15 100/63 (75) 95 02/07/19 16:00 98 02/07/19 13:30 Nasal Cannula 02/07/19 13:30 Nasal Cannula 02/07/19 12:00 97.6 98 15 92/68 (76) 95 02/07/19 12:00 99 Intake and Output 02/07/19 02/08/19 19:00 07:00 Intake Total 1127.5 ml 1100 ml Output Total 550 ml 350 ml Balance 577.5 ml 750 ml IV Total 1127.5 ml 1100 ml Output Urine Total 550 ml 350 ml Objective WDWN NAD reduced breath sounds bilaterally with some expiratory wheeze [id number] without MRG NABS nontender no HSM no CCE nonfocal weak lethargic Microbiology Date/Time Source Procedure Growth Status 02/06/19 05:55 Blood Blood Culture - Preliminary NO GROWTH AFTER 24 HOURS Resulted 02/06/19 05:55 Blood Blood Culture - Preliminary NO GROWTH AFTER 24 HOURS Resulted 02/06/19 06:20 Nasal Nares MRSA Culture - Final NO METHICILLIN RESISTANT STAPH AUREUS... Complete 02/06/19 06:30 Urine,Clean Catch Urine Culture - Final NO GROWTH AFTER 48 HOURS Complete 02/06/19 06:50 Rectal Mucosa VRE Culture - Final NO VANCOMYCIN RESISTANT ENTEROCOCCUS ... Complete 02/06/19 06:50 Rectal Mucosa - Final NO CARBAPENEM-RESISTANT ENTEROBACTERI... Complete Laboratory Tests 02/07/19 11:05: White Blood Count 19.8H, Red Blood Count 3.47L, Hemoglobin 10.1L, Hematocrit 31.2L, Mean Corpuscular Volume 90, Mean Corpuscular Hemoglobin 29.1, Mean Corpuscular Hemoglobin Concent 32.4, Red Cell Distribution Width 17.5H, Platelet Count 329, Mean Platelet Volume 5.4L, Neutrophils (%) (Auto) , Lymphocytes (%) (Auto) , Monocytes (%) (Auto) , Eosinophils (%) (Auto) , Basophils (%) (Auto) , Differential Total Cells Counted 100, Neutrophils % ( Manual) 84H, Lymphocytes % (Manual) 6L, Monocytes % (Manual) 10, Eosinophils % ( Manual) 0, Basophils % (Manual) 0, Band Neutrophils 0, Platelet Estimate Adequate, Platelet Morphology Normal, Anisocytosis 1+, Sodium Level 131L, Potassium Level 5.4H, Chloride Level 97L, Carbon Dioxide Level 20L, Anion Gap 14 , Blood Urea Nitrogen 59H, Creatinine 1.3, Estimat Glomerular Filtration Rate 41.0, Glucose Level 94, Calcium Level 8.3L, Total Bilirubin 3.4H, Direct Bilirubin 3.0H, Aspartate Amino Transf (AST/SGOT) 290H, Alanine Aminotransferase (ALT/SGPT) 44, Alkaline Phosphatase 623H, Total Protein 5.2L, Albumin 1.2L, Globulin 4.0, Albumin/Globulin Ratio 0.3L 02/08/19 04:00: Arterial Blood pH 7.314L, Arterial Blood Partial Pressure CO2 27.0L, Arterial Blood Partial Pressure O2 92.4, Arterial Blood HCO3 13.4*L, Arterial Blood Oxygen Saturation 95.7, Arterial Blood Base Excess -11.3*L, John Test [Pending] 02/08/19 06:55: White Blood Count 21.9H, Red Blood Count 3.47L, Hemoglobin 10.3L, Hematocrit 31.6L, Mean Corpuscular Volume 91, Mean Corpuscular Hemoglobin 29.6, Mean Corpuscular Hemoglobin Concent 32.4, Red Cell Distribution Width 17.7H, Platelet Count 382, Mean Platelet Volume 5.5L, Neutrophils (%) (Auto) , Lymphocytes (%) (Auto) , Monocytes (%) (Auto) , Eosinophils (%) (Auto) , Basophils (%) (Auto) , Differential Total Cells Counted 100, Neutrophils % ( Manual) 91H, Lymphocytes % (Manual) 5L, Monocytes % (Manual) 4, Eosinophils % ( Manual) 0, Basophils % (Manual) 0, Band Neutrophils 0, Platelet Estimate Adequate, Platelet Morphology Normal, Anisocytosis 1+, Sodium Level 128L, Potassium Level 5.5H, Chloride Level 95L, Carbon Dioxide Level 16L, Anion Gap 17H, Blood Urea Nitrogen 63H, Creatinine 1.1, Estimat Glomerular Filtration Rate 49.7, Glucose Level 124H, Calcium Level 8.7, Total Bilirubin 3.7H, Direct Bilirubin 3.0H, Aspartate Amino Transf (AST/SGOT) 276H, Alanine Aminotransferase (ALT/SGPT) 43, Alkaline Phosphatase 740H, Total Protein 5.6L, Albumin 1.3L, Globulin 4.3, Albumin/Globulin Ratio 0.3L, Hypochromasia 1+, Magnesium Level 2.5H, Vancomycin Level Trough 18.1H Current Medications Medications (Trade) Dose Ordered Sig/Dao Route PRN Reason Start Time Stop Time Status Last Admin Dose Admin Albuterol/ Ipratropium (Albuterol/ Ipratropium) 3 ml Q6HRT HHN 02/07/19 19:00 02/11/19 18:59 02/08/19 07:37 Apixaban (Eliquis) 5 mg BID ORAL 02/08/19 09:00 03/08/19 17:59 Dextrose (Dextrose 50%) 25 ml Q30M PRN IV Hypoglycemia 02/07/19 19:00 03/08/19 13:59 Dextrose (Dextrose 50%) 50 ml Q30M PRN IV Hypoglycemia 02/07/19 19:00 03/08/19 13:59 Insulin Aspart (NovoLOG) Q6HR SUBQ 02/08/19 00:00 03/08/19 16:29 Lorazepam (Ativan 2mg/ml 1ml) 1 mg Q6H PRN IV For Anxiety 02/07/19 19:00 02/14/19 18:59 Methylprednisolone Sodium Succinate (Solu-MEDROL) 40 mg Q12H IVP 02/08/19 01:00 03/09/19 12:59 02/08/19 01:00 Morphine Sulfate (Morphine Sulfate) 4 mg Q3H PRN IVP For Pain 02/07/19 19:00 02/14/19 18:59 02/08/19 09:11 Piperacillin Sod/ Tazobactam Sod 3.375 gm/Sodium Chloride 110 ml @ 27.5 mls/hr EVERY 8 HOURS IVPB 02/07/19 22:00 02/11/19 14:59 02/08/19 05:54 Sodium Chloride 1,000 ml @ 100 mls/hr Q10H IV 02/07/19 18:30 03/08/19 13:44 02/08/19 04:30 Vancomycin HCl (Vanco rx to dose) 1 ea DAILY PRN MISC Per rx protocol 02/07/19 19:00 03/09/19 18:59 Vancomycin HCl 500 mg/Dextrose 110 ml @ 110 mls/hr Q12HR@0800,2000 IVPB 02/07/19 20:00 02/11/19 19:59 02/08/19 08:46 Bertin Franklin MD Feb 08, 2019 10:58
[2019-02-08 12:00] VITALS: BP 101/65
[2019-02-08 16:00] VITALS: BP 99/68
--- NOTE | 2019-02-08 18:30 | Consultation ---
DATE OF CONSULTATION: 02/08/2019 INFECTIOUS DISEASES CONSULTATION This consult is for coverage of Dr. Bergman. CONSULTING PHYSICIAN: Will Quezada M.D. PRIMARY ATTENDING PHYSICIAN: Marciano Sanford M.D. REASON FOR CONSULTATION: Sepsis and pneumonia. HISTORY OF PRESENT ILLNESS: The patient is a 68-year-old female admitted on 02/06/2019 from assisted facility. The patient with hypoxemia and hypotension. The patient has metastatic colon cancer to the liver and was on chemotherapy. At the time of admission had leukocytosis of 21.5, blood pressure of 75/42, and very low albumin and elevated bilirubin. PAST MEDICAL HISTORY: Significant for diabetes mellitus, hypertension, anemia, colon cancer, had history of colon surgery, history of deep venous thrombosis, secondary liver neoplasm. ALLERGIES: No known drug allergies. MEDICATIONS: Apixaban, methylprednisolone, insulin, Zosyn, vancomycin, albuterol, ipratropium inhaler, morphine, sodium chloride. SOCIAL HISTORY: Originally from [place]. . Has 3 children. No history of alcohol, drug abuse, and smoking. REVIEW OF SYSTEMS: Currently sleeping, sedated, complains of generalized pain. PHYSICAL EXAMINATION: VITAL SIGNS: Temperature 96.3, pulse 110, blood pressure 89/68. HEAD AND NECK: Getting oxygen by nasal cannula. Icterus. HEART: Normal rate. LUNGS: Clear. ABDOMEN: Soft and nontender. EXTREMITY: Has generalized edema. The patient had Port-A-Cath in left side of the chest. LABORATORY AND DIAGNOSTIC DATA: Sodium 128, potassium 5.5, chloride 95, bicarb 16, BUN 63, creatinine 1.1, bilirubin is 2.5 coming down from 4 at the time of admission. AST 276, ALT 43, albumin is 1.3. WBC 21.9, hemoglobin 10.3, hematocrit 31.6, and platelets 382. Cultures so far negative. The patient had two blood culture and urine culture are negative. MRSA and VRE screen are negative. IMPRESSION: 1. Sepsis. 2. Early shock. 3. Pulmonary edema versus infiltrate. 4. Metastatic colon cancer to the liver, 5. Diabetes mellitus, 6, Hyponatremia, 7. Severe protein malnutrition. RECOMMENDATION: We will continue with Zosyn. Discontinue vancomycin. The patient is DNR and prognosis is very poor. At the end of my exam, I thank Dr. Sanford, Dr. Bermudez, for involving me in the care of this patient. Will Quezada M.D. DR: Sorin JOB#: [id number] CC: SAPPHIRE
[2019-02-08 20:00] VITALS: BP 108/75
[2019-02-09] VITALS: BP 97/68
[2019-02-09] MEDS: Morphine Sulfate 4mg/ml Inj (IV USE ONLY) IVP PRN ×4 (00:09→20:38)
[2019-02-09] MEDS: Albuterol/Ipratropium 3ml neb HHN SCH ×4 (01:00→19:30)
[2019-02-09] MEDS: Solu-MEDROL 40mg Inj IVP SCH ×2 (01:26→12:26)
[2019-02-09] MEDS: LORazepam Inj 2mg/ml 1ml IV PRN ×3 (02:00→18:44)
--- NOTE | 2019-02-09 03:45 | Progress Note ---
DATE: 02/08/2019 CARDIOLOGY PROGRESS NOTE SUBJECTIVE: The patient still has pain. She is alert. Her morphine has been advanced. She has less congestion. She is on antimicrobials and respiratory hygiene. Family members are still considering transition to hospice level of care. They are waiting for another one of the patient's children to arrive for final decision. OBJECTIVE: VITAL SIGNS: Blood pressure 97/68, pulse 97, respirations 19, afebrile. HEENT: Positive icterus. Mild anasarca. LUNGS: Diminished breath sounds. Scattered rhonchi. HEART: Regular rhythm and rate. Normal S1, S2 with a fourth heart sound. ABDOMEN: Soft. IMPRESSION: 1. Metastatic carcinoma of the colon, cancer-related pain, third-spacing due to severe protein-calorie malnutrition. 2. Recovering shock due to sepsis and hypovolemia. 3. History of DVT. PLAN: 1. Continue current antimicrobials. 2. Respiratory hygiene. 3. Volume support. 4. Nutritional support. 5. Pain control. 6. Anticoagulation with apixaban. 7. Await family decision regarding intensity of care. Marciano Sanford M.D. DR: OKSANA JOB#: [id number] CC:
[2019-02-09 04:00] VITALS: BP 104/72
[2019-02-09] MEDS: Piperacillin/Tazobactam 3.375 GM in NS 110 ML IVPB SCH ×3 (05:39→22:25)
[2019-02-09] MEDS: NovoLOG Insulin Flexpen SUBQ SCH ×4 (05:58→19:20)
--- NOTE | 2019-02-09 07:44 | General Progress Note ---
Assessment/Plan Problem List: (1) UTI (urinary tract infection) ICD Codes: N39.0 - Urinary tract infection, site not specified SNOMED: 54007258 (2) Hyponatremia ICD Codes: E87.1 - Hypo-osmolality and hyponatremia SNOMED: 13937492 (3) Sepsis ICD Codes: A41.9 - Sepsis, unspecified organism SNOMED: 66724292 Qualifiers: Qualified Codes: A41.9 - Sepsis, unspecified organism (4) Transient hypotension ICD Codes: I95.9 - Hypotension, unspecified SNOMED: 73484248074671 (5) Colon cancer ICD Codes: C18.9 - Malignant neoplasm of colon, unspecified SNOMED: 823522693 Qualifiers: Qualified Codes: C18.9 - Malignant neoplasm of colon, unspecified (6) Hypotension ICD Codes: I95.9 - Hypotension, unspecified SNOMED: 93313703 (7) Liver metastases ICD Codes: C78.7 - Secondary malignant neoplasm of liver and intrahepatic bile duct SNOMED: 12396291 Status: deteriorating Assessment/Plan: resp care o2 abx family wants to arrange for hospice at home. Subjective ROS Limited/Unobtainable: Yes Constitutional: Reports: malaise, weakness HEENT: Reports: no symptoms Cardiovascular: Reports: no symptoms Respiratory: Reports: no symptoms Gastrointestinal/Abdominal: Reports: no symptoms Genitourinary: Reports: no symptoms Neurologic/Psychiatric: Reports: pre-existing deficit Endocrine: Reports: no symptoms Hematologic/Lymphatic: Reports: no symptoms Allergies: Coded Allergies: No Known Allergies (Unverified , 02/06/19) All Systems: reviewed and negative except above Subjective no events. family a the bedside. pt is confused. still sob. on face mask Objective Last 24 Hour Vital Signs Date Time Temp Pulse Resp B/P (MAP) Pulse Ox O2 Delivery O2 Flow Rate FiO2 02/09/19 06:54 89 24 96 Nasal Cannula 4.0 36 02/09/19 06:45 84 22 94 Nasal Cannula 4.0 36 02/09/19 04:00 98.1 95 18 104/72 (83) 94 02/09/19 01:43 Nasal Cannula 02/09/19 01:43 Nasal Cannula 02/09/19 00:00 97.0 97 19 97/68 (78) 93 02/08/19 21:22 96.6 02/08/19 21:00 Nasal Cannula 3.0 02/08/19 20:09 101 18 92 Nasal Cannula 2.0 28 02/08/19 20:00 100 18 94 Nasal Cannula 4.0 36 02/08/19 20:00 96.6 104 16 108/75 (86) 97 02/08/19 16:00 97.4 109 20 99/68 (78) 95 02/08/19 13:47 111 20 97 Nasal Cannula 2.0 28 02/08/19 13:34 105 20 96 Nasal Cannula 4.0 36 02/08/19 12:00 97.1 108 20 101/65 (77) 92 02/08/19 09:00 Nasal Cannula 3.0 02/08/19 08:00 98.3 110 20 89/68 (75) 95 02/08/19 07:43 109 20 97 Nasal Cannula 2.0 28 Intake and Output 02/08/19 02/09/19 18:59 06:59 Intake Total 1300 ml Output Total 450 ml 350 ml Balance -450 ml 950 ml IV Total 1300 ml Output Urine Total 450 ml 350 ml Height (Feet): 5 Height (Inches): 4.00 Weight (Pounds): 180 General Appearance: WD/WN, lethargic Neck: supple Cardiovascular: normal peripheral pulses, normal rate, regular rhythm Respiratory/Chest: chest wall non-tender, lungs clear, normal breath sounds, no respiratory distress Abdomen: normal bowel sounds, non tender, soft, no organomegaly Edema: no edema noted Arm (L), no edema noted Arm (R), no edema noted Leg (L), no edema noted Leg (R), no edema noted Pedal (L), no edema noted Pedal (R), no edema noted Generalized Neurologic: disoriented, unresponsive, aphasia Sylvain Bermudez MD Feb 09, 2019 07:44
[2019-02-09 08:00] VITALS: BP 86/55
[2019-02-09] MEDS: Eliquis 5mg tablet ORAL SCH ×2 (09:00→18:00)
[2019-02-09 12:00] VITALS: BP 64/43
--- NOTE | 2019-02-09 13:41 | Pulmonology Progress Note ---
Assessment/Plan Assessment/Plan IMPRESSION bilateral infiltrates bilateral effusions bronchospasm respiratory insufficiency elevated liver enzymes metastatic colon cancer hypoxemia PLAN IV steroids - consider taper IV antibiotics per primary respiratory care neb therapy monitor for aspiration prognosis poor hospice care being planned impression, plan, and exam edited and reviewed in detail care discussed with RN Subjective Allergies: Coded Allergies: No Known Allergies (Unverified , 02/06/19) Subjective care noted family would like hospice no real change Objective Last 24 Hour Vital Signs Date Time Temp Pulse Resp B/P (MAP) Pulse Ox O2 Delivery O2 Flow Rate FiO2 02/09/19 12:52 84 20 100 Nasal Cannula 4.0 36 02/09/19 12:40 80 18 94 Nasal Cannula 4.0 36 02/09/19 12:00 98.0 61 16 64/43 (50) 95 02/09/19 09:00 Nasal Cannula 3.0 02/09/19 08:00 97.4 109 17 86/55 (65) 95 02/09/19 06:54 89 24 96 Nasal Cannula 4.0 36 02/09/19 06:45 84 22 94 Nasal Cannula 4.0 36 02/09/19 04:00 98.1 95 18 104/72 (83) 94 02/09/19 01:43 Nasal Cannula 02/09/19 01:43 Nasal Cannula 02/09/19 00:00 97.0 97 19 97/68 (78) 93 02/08/19 21:22 96.6 02/08/19 21:00 Nasal Cannula 3.0 02/08/19 20:09 101 18 92 Nasal Cannula 2.0 28 02/08/19 20:00 100 18 94 Nasal Cannula 4.0 36 02/08/19 20:00 96.6 104 16 108/75 (86) 97 02/08/19 16:00 97.4 109 20 99/68 (78) 95 02/08/19 13:47 111 20 97 Nasal Cannula 2.0 28 Intake and Output 02/08/19 02/09/19 19:00 07:00 Intake Total 100 ml 1200 ml Output Total 450 ml 350 ml Balance -350 ml 850 ml IV Total 100 ml 1200 ml Output Urine Total 450 ml 350 ml Objective WDWN NAD reduced breath sounds bilaterally with some expiratory wheeze [id number] without MRG NABS nontender no HSM no CCE nonfocal weak lethargic Current Medications Medications (Trade) Dose Ordered Sig/Dao Route PRN Reason Start Time Stop Time Status Last Admin Dose Admin Albuterol/ Ipratropium (Albuterol/ Ipratropium) 3 ml Q6HRT HHN 02/07/19 19:00 02/11/19 18:59 02/09/19 12:40 Apixaban (Eliquis) 5 mg BID ORAL 02/08/19 09:00 03/08/19 17:59 Dextrose (Dextrose 50%) 25 ml Q30M PRN IV Hypoglycemia 02/07/19 19:00 03/08/19 13:59 Dextrose (Dextrose 50%) 50 ml Q30M PRN IV Hypoglycemia 02/07/19 19:00 03/08/19 13:59 Insulin Aspart (NovoLOG) Q6HR SUBQ 02/08/19 00:00 03/08/19 16:29 02/09/19 12:27 Lorazepam (Ativan 2mg/ml 1ml) 1 mg Q6H PRN IV For Anxiety 02/07/19 19:00 02/14/19 18:59 02/09/19 09:28 Methylprednisolone Sodium Succinate (Solu-MEDROL) 40 mg Q12H IVP 02/08/19 01:00 03/09/19 12:59 02/09/19 12:26 Morphine Sulfate (Morphine Sulfate) 4 mg Q3H PRN IVP For Pain 02/07/19 19:00 02/14/19 18:59 02/09/19 12:26 Piperacillin Sod/ Tazobactam Sod 3.375 gm/Sodium Chloride 110 ml @ 27.5 mls/hr EVERY 8 HOURS IVPB 02/07/19 22:00 02/11/19 14:59 02/09/19 05:39 Sodium Chloride 1,000 ml @ 100 mls/hr Q10H IV 02/07/19 18:30 03/08/19 13:44 02/09/19 11:16 Bertin Franklin MD Feb 09, 2019 13:41
[2019-02-09 16:00] VITALS: BP 86/47
[2019-02-09 20:00] VITALS: BP 92/59
--- NOTE | 2019-02-09 22:15 | Progress Note ---
CARDIOLOGY PROGRESS NOTE DATE: 02/09/2019 SUBJECTIVE: The patient remains withdrawn, lethargic, and confused. Still on oxygen mask at times due to shortness of breath. Her pain has improved somewhat. OBJECTIVE: VITAL SIGNS: Blood pressure marginal at 86/47, heart rate 106, respiratory rate 18, and afebrile. LUNGS: Diminished breath sounds. Scattered rhonchi. HEART: Regular rhythm and rate. Normal S1, S2. ABDOMEN: Soft. EXTREMITIES: 1+ edema. IMPRESSION: 1. Jaundice . 2. DVT on full anticoagulation. PLAN: 1. Continue antimicrobial. 2. Recheck lab studies. 3. Discontinue maintenance hydration. 4. Anticoagulation. 5. Consideration for comfort care in process. Marciano Sanford M.D. DR: JESÚS JOB#: [id number] CC:
--- NOTE | 2019-02-09 23:50 | Coder Physician Query ---
Clarification is required for compliance, coding accuracy, and to reflect severity of illness for this patient Dear Dr. Bermudez Date: 02/09/19 CDS Name: Joan Sanchez "Shock" has been documented in H&P and progress notes. Patient is admitted with Sepsis and possible Pneumonia. BP on admission 75/42 Rx: IV Zosyn, Vancomycin Can you please clarify the type of shock? [ ] Septic shock [ ] Cardiogenic shock [ ] Hypovolemic shock [ ] Shock: Other [ ] Clinically undetermined Present on Admission: [ ] Yes [ ] No [ ] Clinically Undetermined Physician signature Date Please also document in your Progress Notes and/or Discharge Summary and indicate if the condition was present on admission. SAPPHIRE
[2019-02-10] VITALS: BP 80/54
[2019-02-10] MEDS: Morphine Sulfate 4mg/ml Inj (IV USE ONLY) IVP PRN ×2 (00:27→08:32)
[2019-02-10] MEDS: Solu-MEDROL 40mg Inj IVP SCH (01:00)
[2019-02-10] MEDS: Albuterol/Ipratropium 3ml neb HHN SCH ×3 (02:00→12:42)
[2019-02-10 04:00] VITALS: BP 74/51
[2019-02-10] MEDS: NovoLOG Insulin Flexpen SUBQ SCH ×4 (06:00→17:14)
[2019-02-10] MEDS: Piperacillin/Tazobactam 3.375 GM in NS 110 ML IVPB SCH ×2 (06:09→14:18)
[2019-02-10 06:33] LABS: HEMATOCRIT 29.6 % (37.0-47.0); HEMOGLOBIN 9.5 G/DL (12.0-16.0); MEAN CORPUSCULAR VOLUME 95 FL (80-99); PLATELET COUNT 336 K/UL (150-450); RED BLOOD COUNT 3.12 M/UL (4.20-5.40); RED CELL DISTRIBUTION WIDTH 18.4 % (11.6-14.8)
[2019-02-10 06:43] LABS: ALANINE AMINOTRANSFERASE 66 U/L (12-78); ALBUMIN 1.2 G/DL (3.4-5.0); ALBUMIN/GLOBULIN RATIO 0.3 (1.0-2.7); ALKALINE PHOSPHATASE 632 U/L (46-116); ANION GAP 11 mmol/L (5-15); ASPARTATE AMINO TRANSFERASE 432 U/L (15-37); BILIRUBIN,TOTAL 2.9 MG/DL (0.2-1.0); BLOOD UREA NITROGEN 78 mg/dL (7-18); CALCIUM 8.1 MG/DL (8.5-10.1); CARBON DIOXIDE 20 MMOL/L (21-32); CHLORIDE 103 MMOL/L (98-107); CREATININE 1.4 MG/DL (0.55-1.30); SODIUM 134 MMOL/L (136-145)
[2019-02-10 06:53] LABS: BILIRUBIN,DIRECT 2.4 MG/DL (0.0-0.3)
[2019-02-10] MEDS ORDERED: Sodium Polystyrene Sulfonate Enema RECTAL ONE (07:00)
[2019-02-10 07:11] LABS: WHITE BLOOD COUNT 27.3 K/UL (4.8-10.8)
[2019-02-10 08:00] VITALS: BP 78/50
--- NOTE | 2019-02-10 08:31 | Pulmonology Progress Note ---
Assessment/Plan Assessment/Plan IMPRESSION bilateral infiltrates bilateral effusions bronchospasm respiratory insufficiency elevated liver enzymes metastatic colon cancer hypoxemia PLAN IV steroids - taper IV antibiotics per primary respiratory care neb therapy monitor for aspiration prognosis poor hospice care being planned impression, plan, and exam edited and reviewed in detail care discussed with RN Subjective ROS Limited/Unobtainable: Yes Allergies: Coded Allergies: No Known Allergies (Unverified , 02/06/19) Subjective care noted family would like hospice no real change Objective Last 24 Hour Vital Signs Date Time Temp Pulse Resp B/P (MAP) Pulse Ox O2 Delivery O2 Flow Rate FiO2 02/10/19 06:44 91 6 97 Nasal Cannula 4.0 36 02/10/19 06:40 97 6 93 Nasal Cannula 4.0 36 02/10/19 04:00 96.1 100 14 74/51 (59) 99 02/10/19 02:12 94 7 99 Nasal Cannula 4.0 36 02/10/19 02:00 101 8 96 Nasal Cannula 4.0 36 02/10/19 00:00 96.6 105 12 80/54 (63) 96 02/09/19 21:00 Nasal Cannula 4.0 02/09/19 20:00 97.2 109 14 92/59 (70) 96 02/09/19 19:30 123 22 100 Nasal Cannula 4.0 36 02/09/19 19:25 110 20 93 Nasal Cannula 4.0 36 02/09/19 16:00 98.8 106 18 86/47 (60) 93 02/09/19 12:52 84 20 100 Nasal Cannula 4.0 36 02/09/19 12:40 80 18 94 Nasal Cannula 4.0 36 02/09/19 12:00 98.0 61 16 64/43 (50) 95 02/09/19 09:00 Nasal Cannula 3.0 Intake and Output 02/09/19 02/10/19 18:59 06:59 Intake Total 400 ml Output Total 250 ml Balance 150 ml IV Total 400 ml Output Urine Total 250 ml Objective WDWN NAD reduced breath sounds bilaterally with reduced wheeze [id number] without MRG NABS nontender no HSM no CCE nonfocal weak lethargic Laboratory Tests 02/10/19 05:40: White Blood Count 27.3*H, Red Blood Count 3.12L, Hemoglobin 9.5L, Hematocrit 29.6L, Mean Corpuscular Volume 95, Mean Corpuscular Hemoglobin 30.5, Mean Corpuscular Hemoglobin Concent 32.2, Red Cell Distribution Width 18.4H, Platelet Count 336, Mean Platelet Volume 5.1L, Neutrophils (%) (Auto) , Lymphocytes (%) (Auto) , Monocytes (%) (Auto) , Eosinophils (%) (Auto) , Basophils (%) (Auto) , Neutrophils % (Manual) [Pending], Lymphocytes % (Manual) [Pending], Platelet Estimate [Pending], Platelet Morphology [Pending], Sodium Level 134L, Potassium Level 6.0*H, Chloride Level 103, Carbon Dioxide Level 20L , Anion Gap 11, Blood Urea Nitrogen 78H, Creatinine 1.4H, Estimat Glomerular Filtration Rate 37.6, Glucose Level 160H, Calcium Level 8.1L, Magnesium Level 2.3, Total Bilirubin 2.9H, Direct Bilirubin 2.4H, Aspartate Amino Transf (AST/ SGOT) 432H, Alanine Aminotransferase (ALT/SGPT) 66, Alkaline Phosphatase 632H, Total Protein 4.9L, Albumin 1.2L, Globulin 3.7, Albumin/Globulin Ratio 0.3L Current Medications Medications (Trade) Dose Ordered Sig/Dao Route PRN Reason Start Time Stop Time Status Last Admin Dose Admin Albuterol/ Ipratropium (Albuterol/ Ipratropium) 3 ml Q6HRT HHN 02/07/19 19:00 02/11/19 18:59 02/10/19 06:44 Apixaban (Eliquis) 5 mg BID ORAL 02/08/19 09:00 03/08/19 17:59 Dextrose (Dextrose 50%) 25 ml Q30M PRN IV Hypoglycemia 02/07/19 19:00 03/08/19 13:59 Dextrose (Dextrose 50%) 50 ml Q30M PRN IV Hypoglycemia 02/07/19 19:00 03/08/19 13:59 Insulin Aspart (NovoLOG) Q6HR SUBQ 02/08/19 00:00 03/08/19 16:29 02/09/19 19:20 Lorazepam (Ativan 2mg/ml 1ml) 1 mg Q6H PRN IV For Anxiety 02/07/19 19:00 02/14/19 18:59 02/09/19 18:44 Methylprednisolone Sodium Succinate (Solu-MEDROL) 40 mg Q12H IVP 02/08/19 01:00 03/09/19 12:59 02/10/19 01:00 Morphine Sulfate (Morphine Sulfate) 4 mg Q3H PRN IVP For Pain 02/07/19 19:00 02/14/19 18:59 02/10/19 00:27 Piperacillin Sod/ Tazobactam Sod 3.375 gm/Sodium Chloride 110 ml @ 27.5 mls/hr EVERY 8 HOURS IVPB 02/07/19 22:00 02/11/19 14:59 02/10/19 06:09 Sodium Chloride 1,000 ml @ 100 mls/hr Q10H IV 02/07/19 18:30 03/08/19 13:44 02/10/19 06:09 Bertin Franklin MD Feb 10, 2019 08:31
[2019-02-10] MEDS: Eliquis 5mg tablet ORAL SCH ×2 (08:37→17:38)
--- NOTE | 2019-02-10 09:00 | General Progress Note ---
Assessment/Plan Problem List: (1) UTI (urinary tract infection) ICD Codes: N39.0 - Urinary tract infection, site not specified SNOMED: 82954368 (2) Hyponatremia ICD Codes: E87.1 - Hypo-osmolality and hyponatremia SNOMED: 85639543 (3) Sepsis ICD Codes: A41.9 - Sepsis, unspecified organism SNOMED: 08905368 Qualifiers: Qualified Codes: A41.9 - Sepsis, unspecified organism (4) Transient hypotension ICD Codes: I95.9 - Hypotension, unspecified SNOMED: 36384254941571 (5) Colon cancer ICD Codes: C18.9 - Malignant neoplasm of colon, unspecified SNOMED: 440087744 Qualifiers: Qualified Codes: C18.9 - Malignant neoplasm of colon, unspecified (6) Hypotension ICD Codes: I95.9 - Hypotension, unspecified SNOMED: 25809302 (7) Liver metastases ICD Codes: C78.7 - Secondary malignant neoplasm of liver and intrahepatic bile duct SNOMED: 98232908 Status: deteriorating Assessment/Plan: resp care o2 abx family wants to arrange for hospice at home. Subjective ROS Limited/Unobtainable: Yes Constitutional: Reports: malaise, weakness HEENT: Reports: no symptoms Cardiovascular: Reports: no symptoms Respiratory: Reports: cough, shortness of breath Gastrointestinal/Abdominal: Reports: abdomen distended Genitourinary: Reports: no symptoms Neurologic/Psychiatric: Reports: pre-existing deficit Endocrine: Reports: no symptoms Hematologic/Lymphatic: Reports: no symptoms Allergies: Coded Allergies: No Known Allergies (Unverified , 02/06/19) All Systems: reviewed and negative except above Subjective no events. family a the bedside. pt is confused/lethargic. labs noted. still sob. on face mask. Objective Last 24 Hour Vital Signs Date Time Temp Pulse Resp B/P (MAP) Pulse Ox O2 Delivery O2 Flow Rate FiO2 02/10/19 06:44 91 6 97 Nasal Cannula 4.0 36 02/10/19 06:40 97 6 93 Nasal Cannula 4.0 36 02/10/19 04:00 96.1 100 14 74/51 (59) 99 02/10/19 02:12 94 7 99 Nasal Cannula 4.0 36 02/10/19 02:00 101 8 96 Nasal Cannula 4.0 36 02/10/19 00:00 96.6 105 12 80/54 (63) 96 02/09/19 21:00 Nasal Cannula 4.0 02/09/19 20:00 97.2 109 14 92/59 (70) 96 02/09/19 19:30 123 22 100 Nasal Cannula 4.0 36 02/09/19 19:25 110 20 93 Nasal Cannula 4.0 36 02/09/19 16:00 98.8 106 18 86/47 (60) 93 02/09/19 12:52 84 20 100 Nasal Cannula 4.0 36 02/09/19 12:40 80 18 94 Nasal Cannula 4.0 36 02/09/19 12:00 98.0 61 16 64/43 (50) 95 02/09/19 09:00 Nasal Cannula 3.0 Intake and Output 02/09/19 02/10/19 18:59 06:59 Intake Total 400 ml Output Total 250 ml Balance 150 ml IV Total 400 ml Output Urine Total 250 ml Laboratory Tests 02/10/19 05:40: White Blood Count 27.3*H, Red Blood Count 3.12L, Hemoglobin 9.5L, Hematocrit 29.6L, Mean Corpuscular Volume 95, Mean Corpuscular Hemoglobin 30.5, Mean Corpuscular Hemoglobin Concent 32.2, Red Cell Distribution Width 18.4H, Platelet Count 336, Mean Platelet Volume 5.1L, Neutrophils (%) (Auto) , Lymphocytes (%) (Auto) , Monocytes (%) (Auto) , Eosinophils (%) (Auto) , Basophils (%) (Auto) , Neutrophils % (Manual) [Pending], Lymphocytes % (Manual) [Pending], Platelet Estimate [Pending], Platelet Morphology [Pending], Sodium Level 134L, Potassium Level 6.0*H, Chloride Level 103, Carbon Dioxide Level 20L , Anion Gap 11, Blood Urea Nitrogen 78H, Creatinine 1.4H, Estimat Glomerular Filtration Rate 37.6, Glucose Level 160H, Calcium Level 8.1L, Magnesium Level 2.3, Total Bilirubin 2.9H, Direct Bilirubin 2.4H, Aspartate Amino Transf (AST/ SGOT) 432H, Alanine Aminotransferase (ALT/SGPT) 66, Alkaline Phosphatase 632H, Total Protein 4.9L, Albumin 1.2L, Globulin 3.7, Albumin/Globulin Ratio 0.3L Height (Feet): 5 Height (Inches): 4.00 Weight (Pounds): 180 Objective General Appearance: WD/WN, lethargic Neck: supple Cardiovascular: normal peripheral pulses, normal rate, regular rhythm Respiratory/Chest: chest wall non-tender, lungs clear, normal breath sounds, no respiratory distress Abdomen: normal bowel sounds, non tender, soft, no organomegaly Edema: no edema noted Arm (L), no edema noted Arm (R), no edema noted Leg (L), no edema noted Leg (R), no edema noted Pedal (L), no edema noted Pedal (R), no edema noted Generalized Neurologic: disoriented, unresponsive, aphasia Sylvain Bermudez MD Feb 10, 2019 09:00
[2019-02-10] MEDS: LORazepam Inj 2mg/ml 1ml IV PRN ×2 (09:12→18:22)
--- NOTE | 2019-02-10 11:04 | Infectious Diseases Prog Note ---
Assessment/Plan Assessment/Plan antibiotics : zosyn A 1. leucocytosis increased likely secondary to steroids 2. metastatic colon cancer to liver 3. diabetes mellitus 4. ? pneumonia P 1. continue zosyn 2. hospice planned Subjective Constitutional: Denies: fever, chills Respiratory: Denies: shortness of breath, dry cough Gastrointestinal/Abdominal: Denies: nausea, vomiting, diarrhea Musculoskeletal: Reports: pain Allergies: Coded Allergies: No Known Allergies (Unverified , 02/06/19) Objective Vital Signs Last 24 Hour Vital Signs Date Time Temp Pulse Resp B/P (MAP) Pulse Ox O2 Delivery O2 Flow Rate FiO2 02/10/19 09:29 Nasal Cannula 4.0 02/10/19 09:02 96.1 02/10/19 08:00 96.1 99 14 78/50 (59) 97 02/10/19 06:44 91 6 97 Nasal Cannula 4.0 36 02/10/19 06:40 97 6 93 Nasal Cannula 4.0 36 02/10/19 04:00 96.1 100 14 74/51 (59) 99 02/10/19 02:12 94 7 99 Nasal Cannula 4.0 36 02/10/19 02:00 101 8 96 Nasal Cannula 4.0 36 02/10/19 00:00 96.6 105 12 80/54 (63) 96 02/09/19 21:00 Nasal Cannula 4.0 02/09/19 20:00 97.2 109 14 92/59 (70) 96 02/09/19 19:30 123 22 100 Nasal Cannula 4.0 36 02/09/19 19:25 110 20 93 Nasal Cannula 4.0 36 02/09/19 16:00 98.8 106 18 86/47 (60) 93 02/09/19 12:52 84 20 100 Nasal Cannula 4.0 36 02/09/19 12:40 80 18 94 Nasal Cannula 4.0 36 02/09/19 12:00 98.0 61 16 64/43 (50) 95 Height (Feet): 5 Height (Inches): 4.00 Weight (Pounds): 180 Respiratory/Chest: lungs clear Cardiovascular: normal rate, regular rhythm, no gallop/murmur Abdomen: soft, non tender Extremities: other - + edema, right subclavian catheter Laboratory Tests Test 02/10/19 05:40 White Blood Count 27.3 K/UL (4.8-10.8) *H Red Blood Count 3.12 M/UL (4.20-5.40) L Hemoglobin 9.5 G/DL (12.0-16.0) L Hematocrit 29.6 % (37.0-47.0) L Mean Corpuscular Volume 95 FL (80-99) Mean Corpuscular Hemoglobin 30.5 PG (27.0-31.0) Mean Corpuscular Hemoglobin Concent 32.2 G/DL (32.0-36.0) Red Cell Distribution Width 18.4 % (11.6-14.8) H Platelet Count 336 K/UL (150-450) Mean Platelet Volume 5.1 FL (6.5-10.1) L Neutrophils (%) (Auto) % (45.0-75.0) Lymphocytes (%) (Auto) % (20.0-45.0) Monocytes (%) (Auto) % (1.0-10.0) Eosinophils (%) (Auto) % (0.0-3.0) Basophils (%) (Auto) % (0.0-2.0) Differential Total Cells Counted 100 Neutrophils % (Manual) 89 % (45-75) H Lymphocytes % (Manual) 3 % (20-45) L Monocytes % (Manual) 6 % (1-10) Eosinophils % (Manual) 0 % (0-3) Basophils % (Manual) 0 % (0-2) Band Neutrophils 2 % (0-8) Platelet Estimate Adequate Platelet Morphology Normal Hypochromasia 2+ Anisocytosis 2+ Sodium Level 134 MMOL/L (136-145) L Potassium Level 6.0 MMOL/L (3.5-5.1) *H Chloride Level 103 MMOL/L (98-107) Carbon Dioxide Level 20 MMOL/L (21-32) L Anion Gap 11 mmol/L (5-15) Blood Urea Nitrogen 78 mg/dL (7-18) H Creatinine 1.4 MG/DL (0.55-1.30) H Estimat Glomerular Filtration Rate 37.6 mL/min (>60) Glucose Level 160 MG/DL (74-106) H Calcium Level 8.1 MG/DL (8.5-10.1) L Magnesium Level 2.3 MG/DL (1.8-2.4) Total Bilirubin 2.9 MG/DL (0.2-1.0) H Direct Bilirubin 2.4 MG/DL (0.0-0.3) H Aspartate Amino Transf (AST/SGOT) 432 U/L (15-37) H Alanine Aminotransferase (ALT/SGPT) 66 U/L (12-78) Alkaline Phosphatase 632 U/L (46-116) H Total Protein 4.9 G/DL (6.4-8.2) L Albumin 1.2 G/DL (3.4-5.0) L Globulin 3.7 g/dL Albumin/Globulin Ratio 0.3 (1.0-2.7) L Current Medications Medications (Trade) Dose Ordered Sig/Dao Route PRN Reason Start Time Stop Time Status Last Admin Dose Admin Albuterol/ Ipratropium (Albuterol/ Ipratropium) 3 ml Q6HRT HHN 02/07/19 19:00 02/11/19 18:59 02/10/19 06:44 Apixaban (Eliquis) 5 mg BID ORAL 02/08/19 09:00 03/08/19 17:59 Dextrose (Dextrose 50%) 25 ml Q30M PRN IV Hypoglycemia 02/07/19 19:00 03/08/19 13:59 Dextrose (Dextrose 50%) 50 ml Q30M PRN IV Hypoglycemia 02/07/19 19:00 03/08/19 13:59 Insulin Aspart (NovoLOG) Q6HR SUBQ 02/08/19 00:00 03/08/19 16:29 02/09/19 19:20 Lorazepam (Ativan 2mg/ml 1ml) 1 mg Q6H PRN IV For Anxiety 02/07/19 19:00 02/14/19 18:59 02/10/19 09:12 Morphine Sulfate (Morphine Sulfate) 4 mg Q3H PRN IVP For Pain 02/07/19 19:00 02/14/19 18:59 02/10/19 08:32 Piperacillin Sod/ Tazobactam Sod 3.375 gm/Sodium Chloride 110 ml @ 27.5 mls/hr EVERY 8 HOURS IVPB 02/07/19 22:00 02/11/19 14:59 02/10/19 06:09 Sodium Chloride 1,000 ml @ 100 mls/hr Q10H IV 02/07/19 18:30 03/08/19 13:44 02/10/19 06:09 Shashi Bergman MD Feb 10, 2019 11:04
[2019-02-10 12:00] VITALS: BP 72/53
[2019-02-10] MEDS ORDERED: Solu-MEDROL 40mg Inj IVP SCH (13:00)
[2019-02-10 16:00] VITALS: BP 76/46
--- NOTE | 2019-02-11 16:33 | Discharge Summary ---
Discharge Summary Discharge Summary _ DATE OF ADMISSION: 02/06/2019 DATE OF DISCHARGE: 02/10/2019 DISCHARGED BY: Dr. Sanford REASON FOR ADMISSION: 68 years old female with past medical history of metastatic colon cancer with metastasis to liver, history of DVT, anemia, hypertension, diabetes mellitus, ischemic cardiomyopathy, DNR/DNI status , was transferred from the longterm facility after she noted to be short of breath and hypoxic. Upon evaluation in emergency department patient was also hypotensive. Laboratory work-up revealed sodium 125, potassium 6 , bilirubin 4.0, albumin 1.4. Urinalysis revealed no evidence of UTI. CT of the head revealed no evidence of acute intracranial pathology. Chest x-ray revealed bilateral interstitial and airspace disease, right greater than left, reflecting edema versus infiltrates. Borderline cardiomegaly. Bilateral pleural effusion right more than left , right chest Port-A-Cath noted in place. Septic work-up initiated. Patient pancultured, received fluid challenge and started on broad-spectrum antibiotic. Patient subsequently admitted for further evaluation and management. CONSULTANTS: director machine Dr. Sanford pulmonary Dr. Franklin ID specialist Dr. Bergman HOSPITAL COURSE: Patient admitted and started on broad-spectrum antibiotic and IV fluids. Hemodynamic status was closely monitored. DVT and GI prophylaxis provided. Antibiotic provided as per ID specialist recommendations. Blood cultures were negative. Urine cultures was negative. Patient continued to demonstrate persistent leukocytosis, on day of discharge - 27.3. No fevers. Supplemental oxygen provided as needed to keep pulse oximetry above 92%. Pulmonary toilet provided as needed. Patient was able to be weaned to oxygen 4 L via nasal cannula. Patient started on the IV steroids with tapering. Strict aspiration precautions were maintained. Hospice was planned hospice care was plan as per family wishes. Blood sugar was managed with sliding scale of insulin. Anticoagulation with Eliquis continued. Due to persistent leukocytosis, steroids stopped . However patient continued to have persistent leukocytosis. Nutritional supplements implemented in plan of care as per registered nurse renal recommendation. Pain management was addressed as needed. Overall prognosis was poor , given terminal colon cancer with metastatic disease. 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 Family opted for comfort care/hospice services. Patient was referred to [facility]. Patient subsequently was discharged home with e hospice services. FINAL DIAGNOSES: Sepsis , probably abdominal Shock Healthcare associated pneumonia with bilateral infiltrates Bilateral pleural effusion Bronchospasm Hypoxemia Metastatic colon cancer with liver metastasis-terminal , complicated by ascites and anasarca as well as abdominal sepsis likely due to obstruction. Cancer related pain Third spacing due to severe protein calorie malnutrition Diabetes mellitus History of ischemic cardiomyopathy Hyponatremia DISCHARGE MEDICATIONS: List of medication was sent with patient DISCHARGE INSTRUCTIONS: Patient was discharged home with hospice services I have been assigned to dictate discharge summary for this account. I was not involved in the patient's management. Xuan Harman NP Feb 11, 2019 16:33
--- NOTE | 2019-02-12 03:45 | Progress Note ---
DATE: 02/10/2019 CARDIOLOGY PROGRESS NOTE SUBJECTIVE: The patient remains weak and short of breath. Poorly responsive and lethargic. The patient has not improved since admission. undertaken with family members who are aware of the patient's preterminal state and requesting transition to hospice comfort care plan. OBJECTIVE: VITAL SIGNS: Blood pressure 74/51, pulse 100, respirations 14, and afebrile. HEENT: Scleral icterus, jaundice, anasarca. LUNGS: Diminished breath sounds. HEART: Regular rhythm. Rapid rate. Normal S1, S2. ABDOMEN: Slightly distended, but soft with no guarding. LABORATORY DATA: Reviewed. IMPRESSION: Terminal colon cancer with metastatic disease complicated by ascites and anasarca as well as abdominal sepsis likely due to obstruction. PLAN: Hospice contacted for immediate initiation of care plan and discharged home. Family expects patient's . Marciano Sanford M.D. DR: NICHOLAS JOB#: [id number] CC:
== END 2019-02-10 18:55 | disposition hospice, home (50) | DRG 871 ==
LOC: EDBD 05:40 → EMR 06:45 → 2E 07:17 → EDBEDREQ 08:00 → 3E 02-07 18:00
DX: A41.9 Sepsis, unspecified organism (principal); J18.9 Pneumonia, unspecified organism; E43 Unspecified severe protein-calorie malnutrition; R65.21 Severe sepsis with septic shock; E87.1 Hypo-osmolality and hyponatremia; C18.9 Malignant neoplasm of colon, unspecified; C78.7 Secondary malignant neoplasm of liver and intrahepatic bile duct; R18.8 Other ascites; R09.02 Hypoxemia; G89.3 Neoplasm related pain (acute) (chronic); E11.9 Type 2 diabetes mellitus without complications; I25.5 Ischemic cardiomyopathy; Z86.718 Personal history of other venous thrombosis and embolism; M81.0 Age-related osteoporosis without current pathological fracture; E86.1 Hypovolemia; E87.5 Hyperkalemia; Z66 Do not resuscitate; Y95 Nosocomial condition; Z68.30 Body mass index [BMI] 30.0-30.9, adult
CPT/HCPCS: 36415; 36600; 70450; 71045; 80053; 80202; 81003; 82140; 82248; 82550; 82962; 83605; 83690; 83735; 83880; 84132; 84300; 84484; 85007; 85025; 85610; 85730; 86850; 86900; 86901; 87040; 87081; 87086; 93005; 94640; 94664; 96361; 96365; 96368; 96375; 99291; J1815; J7620